=== PATIENT | male | born 1940 | race Caucasian/White ===

== ENCOUNTER 2017-09-03 08:23 | Day surgery (SDC) | payer MEDICARE ==
[~2017-09-03 08:23] MED LIST: ARIP1TAB5 PO; CARB200T16 PO; CLON2TAB PO; DOCU1CAP39 PO; DONE5TAB14 PO; DULO30 PO; FURO20 PO; GABA100C4 PO; HYDR-3580 PO; LISI20 PO; METO25 PO; METR-1 PO; NIFE1TAB85 PO; NITR0.4S SL; NORT25CA PO; OXYB5TAB33 PO; PLAV75TA PO; QUET100 PO; SIMV40TA PO; Z.0.CPM; ZOLO25TA PO
[2017-09-03] MEDS ORDERED: NITROGLYCERIN 0.4 MG SL 25 TABS/BTL SL ONE (09:22)
== END 2017-09-03 11:32 | disposition home or self-care (01) ==
LOC: HBDO 08:23 → HDIC 08:24 → HBDO 11:32
PROVIDERS: ATTEND Internal Medicine Cardiovascular Disease
DX: R55 Syncope and collapse (principal); R42 Dizziness and giddiness
CPT/HCPCS: 93660

== ENCOUNTER → 2017-12-19 | Day surgery (SDC) | payer MEDICARE ==
[~2017-12-19] MED LIST changes: +LACTATED RINGER'S 1000 ML INJ 1,000 ML ONE; +PROPOFOL 500 MG/50 ML BTL IV ONE
== END | disposition home or self-care (01) ==
LOC: ESDC 13:18
PROVIDERS: ATTEND Internal Medicine Gastroenterology
DX: Z12.11 Encounter for screening for malignant neoplasm of colon (principal); Z86.010 Personal history of colon polyps; K57.30 Diverticulosis of large intestine without perforation or abscess without bleeding; K64.8 Other hemorrhoids; R12 Heartburn; R10.13 Epigastric pain; K29.70 Gastritis, unspecified, without bleeding; K20.9 Esophagitis, unspecified
CPT/HCPCS: 00813; 43239; 45378; 88305; 88312; J7120